=== PATIENT | female | born 1965 | race Caucasian/White ===

== ENCOUNTER 2017-06-03 12:50 | Day surgery (SDC) | payer BC ==
[2017-06-03 13:19] VITALS: BP 103/67; PULSE 63; RESP 14; TEMP 98; O2SAT 92
[2017-06-03 14:15] VITALS: BP 126/68; PULSE 45; RESP 16; TEMP 97; O2SAT 94
[2017-06-03 14:30] VITALS: BP 121/79; PULSE 55; RESP 16; O2SAT 93
[2017-06-03] MEDS ORDERED: LIDOCAINE HCL 1% 20 ML VIAL ONE (15:13)
--- NOTE | 2017-06-03 15:52 | RADRPT ---
EXAM DATE/TIME: 06/03/2017 13:22 [place] COMPARISON: No previous studies available for comparison. INDICATIONS : Right thyroid nodule. MEDICAL HISTORY : Hypothyroidism. SURGICAL HISTORY : None. ENCOUNTER: Initial ACUITY: 1 day PAIN SCORE: 1/10 LOCATION: Right neck ORGAN: Right thyroid lobe SPECIMENS: Three fine needle aspirate(s) submitted for pathologic evaluation. DEVICE: 22 gauge needle Post procedure scanning reveals no hematoma or other complication. The possibility does exist that the tissue obtained will be non-diagnostic. If the sample is non-elodia gnostic a repeat biopsy or surgical biopsy may need to be performed. TECHNIQUE: 1. Ultrasound guidance for needle biopsy. 2. Needle biopsy. The risks, benefits and alternatives to the procedure were explained and verbal and written consent w as obtained. The site was prepped in sterile fashion. Full sterile technique was used, including ca p, mask, sterile gloves and gown and a large sterile sheet. Hand hygiene and 2% chlorhexidine and/or betadine/alcohol prep was utilized per protocol for cutaneous antisepsis. The skin and subcutaneous tissues were infiltrated with local anesthetic solution. Sterile gel and sterile probe cover were u tilized for ultrasound guidance. With the patient on the ultrasound table, images were obtained. A needle was advanced into the identified target and the number of specimens as above obtained and fernandes bmitted for pathologic evaluation. The patient tolerated the procedure well and left the ultrasound suite in stable condition. CONCLUSION: Uncomplicated ultrasound guided needle biopsy of the area of decreased echogenicity throughout the ri ght lobe. Avery Pope MD on June 03, 2017 at 15:49 Board Certified Radiologist. This report was verified electronically.
== END 2017-06-03 14:45 | disposition home or self-care (01) ==
LOC: HRAD 12:50 → HRIP 12:51 → HRAD 14:45
PROVIDERS: ATTEND Internal Medicine
DX: E04.1 Nontoxic single thyroid nodule (principal); E03.9 Hypothyroidism, unspecified
CPT/HCPCS: 10022; 76942; 88172; 88173